=== PATIENT | male | born 1945 | race Caucasian/White ===

== ENCOUNTER → 2021-05-13 | Outpatient (CLI) | payer OTHER | END | disposition home or self-care (01) | LOC: LAB 07:54 | PROVIDERS: ATTEND Family Medicine | DX: Z01.818 Encounter for other preprocedural examination (principal); H26.9 Unspecified cataract; I44.0 Atrioventricular block, first degree; I49.1 Atrial premature depolarization; I45.10 Unspecified right bundle-branch block | CPT/HCPCS: 93005 ==

== ENCOUNTER → 2024-12-05 | Outpatient (CLI) | payer OTHER ==
--- NOTE | 2024-12-05 14:17 | HMCIMG ---
EXAMINATION: SOFT TISSUE ULTRASOUND OF THE RIGHT NECK. CLINICAL HISTORY: Palpable swelling/mass in neck. COMPARISON: None provided. TECHNIQUE: Transverse and longitudinal images were obtained. In addition, color Doppler is medically necessary to assess vascularity and blood flow. FINDINGS: There are multiple enlarged lymph nodes largest measure 1.4 x 0.5 x 1.1 cm and 0.8 x 0.3 x 0.6 cm in the right submandibular region. Maintained hilar echoes. No increased vascularity. IMPRESSION: Right cervical lymphadenopathy. Recommend CT neck with contrast. /[place]
== END | disposition home or self-care (01) ==
LOC: RAH 10:52
PROVIDERS: ATTEND Internal Medicine
DX: R22.1 Localized swelling, mass and lump, neck (principal)
CPT/HCPCS: 76536

== ENCOUNTER → 2025-01-03 | Outpatient (CLI) | payer OTHER ==
[~2025-01-03] MED LIST: IOHEXOL-350 50ML VIAL IV ONE
--- NOTE | 2025-01-05 22:13 | HMCIMG ---
EXAM: CT Neck With IV Contrast CLINICAL HISTORY: Lymphadenopathy on ultrasound. TECHNIQUE: Contiguous axial images obtained through the neck. Reconstructed imaging. Reformatted/MPR images were performed. CT scan done according to ALARA (As Low as Reasonably Achievable). CONTRAST: 50ml Omnipaque 350. COMPARISON: Ultrasound dated December 05, 2024. FINDINGS: Metal streaking artifacts in the bilateral maxillary regions. Included intracranial substances, orbits, and paranasal sinuses are grossly unremarkable. Nasopharynx, oropharynx, oral cavity, hypopharynx and larynx are grossly unremarkable. Parotid, submandibular and thyroid glands are grossly unremarkable. There are few mildly enlarged non-necrotic, non-calcified lymph nodes at level Ib on both sides of neck, measuring 1.2 x 1.0 cm on the right and 1.5 x 1.0 cm on the left side. Visualized included lung apices demonstrate mild centrilobular emphysema. The bones under view show degenerative spondylotic changes in the spine. Atherosclerotic vascular calcifications were noted. Left maxillary sinus disease. Remaining paranasal sinuses and mastoid air cells are well-pneumatized. IMPRESSION: 1. No lymphadenopathy, mass, or CT evidence for soft tissue infection. 2. Mild centrilobular emphysema. Compared to previous ultrasound dated December 05, 2024, no significant interval change. /[place]
== END | disposition home or self-care (01) ==
LOC: RAH 09:27
PROVIDERS: ATTEND Internal Medicine
DX: R22.1 Localized swelling, mass and lump, neck (principal); J43.2 Centrilobular emphysema; J32.0 Chronic maxillary sinusitis; M47.812 Spondylosis without myelopathy or radiculopathy, cervical region
CPT/HCPCS: 70492; Q9967